=== PATIENT | male | born 1955 ===

== ENCOUNTER 2024-02-11 14:13 | Inpatient (IN) ==
[2024-02-11] MEDS ORDERED: IOPAMIDOL 100 ML BOTTLE IV ONE (14:14)
[2024-02-11 16:02] LABS: Basophils # (Auto) 0.03 K/mcL (0.00-0.30); Basophils % (Auto) 0.2 % (0.0-2.0); Eosinophils # (Auto) 0.05 K/mcL (0.00-0.70); Eosinophils % (Auto) 0.3 % (0.0-7.0); Hematocrit 48.6 % (40.1-51.0); Lymphocytes # (Auto) 0.78 K/mcL (1.50-4.80); Mean Cell Volume 92.6 fL (80.0-100.0); Mean Corpuscular HGB Conc 32.9 g/dL (31.0-36.0); Mean Platelet Volume 9.9 fL (8.8-12.5); Monocytes # (Auto) 0.96 K/mcL (0.10-0.90); Monocytes % (Auto) 4.9 % (1.0-12.0); Neutrophils % (Auto) 90.2 % (38.0-78.0); Platelet Count 363 K/mcL (140-440); RBC 5.25 M/mcL (4.63-6.08); WBC 19.4 K/mcL (4.5-11.0)
[2024-02-11 16:21] LABS: ALT/SGPT 96 U/L (<40); AST/SGOT 201 U/L (<40); Albumin 3.7 gm/dL (3.2-5.2); Albumin/Globulin Ratio 0.9 (1.0-2.3); Alkaline Phosphatase 197 U/L (39-117); Bilirubin,Total 0.8 mg/dL (0.1-1.0); Blood Urea Nitrogen 17 mg/dL (8-23); Calcium 9.2 mg/dL (8.6-10.4); Carbon Dioxide 23 mmol/L (22-30); Chloride 97 mmol/L (96-108); Glomerular Filtration Rate 109; Glucose 275 mg/dL (70-105); Potassium 4.1 mmol/L (3.3-5.1); Sodium 133 mmol/L (133-145)
[2024-02-11] MEDS: PIPERACILLIN SODIUM/TAZOBACTAM 3.375 GM in DEXTROSE 5% IN WATER 50 ML IV ONE (16:38)
[2024-02-11] MEDS: 0.9 % SODIUM CHLORIDE 1,000 ML IV SCH ×2 (18:05→20:40)
[2024-02-11 19:39] LABS: Appearance,Urine Cloudy (Clear); Bacteria,Urine Many /hpf (0); Bilirubin,Urine Negative (Negative); Color,Urine Yellow; Glucose,Urine (UA) 100 mg/dL (Negative); Ketones,Urine Trace mg/dL (Negative); Leukocyte Esterase,Urine Trace /uL (Negative); Nitrate,Urine Negative (Negative); PH,Urine 5.5 (5.0-9.0); Protein,Urine >=300 mg/dL (Negative); Urine Blood Trace-intact ery/mcL (Negative); Urine RBC 0 /hpf (0-3); Urine Squamous Epithelial Cell 0 /hpf (0-4); Urine WBC 50 /hpf (0-4); Urobilinogen,Urine Normal
[2024-02-11] MEDS ORDERED: oxyCODONE IR 5 MG TABLET PO PRN (20:25)
[2024-02-11] MEDS ORDERED: DEXTROSE 31 GM ORAL.SUSP PO PRN (20:25)
[2024-02-11] MEDS ORDERED: ONDANSETRON 4 MG/2 ML VIAL IV PRN (20:25)
[2024-02-11] MEDS ORDERED: DEXTROSE 50% 50 ML VIAL IV PRN (20:25)
[2024-02-11] MEDS ORDERED: ALBUTEROL SULFATE 2.5 MG/3 ML NEBULIZER NEB PRN (20:25)
[2024-02-11] MEDS ORDERED: CALCIUM CARBONATE 500 MG TAB.CHEW CHEWED PRN (20:25)
[2024-02-11] MEDS ORDERED: ZOLPIDEM 5 MG TABLET PO PRN (20:25)
[2024-02-11] MEDS ORDERED: MAG HYDROX/AL HYDROX/SIMETH 30 ML ORAL.SUSP PO PRN (20:25)
[2024-02-11] MEDS ORDERED: ACETAMINOPHEN 325 MG TABLET PO PRN (20:25)
[2024-02-11] MEDS ORDERED: METOCLOPRAMIDE 10 MG/2 ML VIAL IV PRN (20:25)
[2024-02-11] MEDS ORDERED: MAGNESIUM HYDROXIDE 30 ML ORAL.SUSP PO PRN (20:25)
[2024-02-11] MEDS ORDERED: HYDROmorphone 0.5 MG/0.5 ML SYRINGE IV PRN (20:25)
[2024-02-11] MEDS: VANCOMYCIN 125 MG CAPSULE PO SCH (21:03)
[2024-02-11] MEDS: 0.9 % SODIUM CHLORIDE 10 ML SYRINGE IV SCH (21:04)
[2024-02-11] MEDS: DOCUSATE SODIUM 100 MG CAPSULE PO SCH (21:04)
[2024-02-11] MEDS: METOPROLOL TARTRATE 25 MG TABLET PO SCH (21:04)
[2024-02-11] MEDS: PIPERACILLIN SODIUM/TAZOBACTAM 3.375 GM in DEXTROSE 5% IN WATER 100 ML IV SCH (22:16)
[2024-02-12] MEDS: INSULIN LISPRO 1 UNIT/0.01 ML UNIT SQ SCH (01:12)
[2024-02-12 06:05] LABS: Basophils # (Auto) 0.02 K/mcL (0.00-0.30); Basophils % (Auto) 0.1 % (0.0-2.0); Eosinophils # (Auto) 0.05 K/mcL (0.00-0.70); Eosinophils % (Auto) 0.3 % (0.0-7.0); Hematocrit 45.6 % (40.1-51.0); Lymphocytes # (Auto) 1.09 K/mcL (1.50-4.80); Lymphocytes % (Auto) 6.1 % (15.5-49.0); Mean Cell Volume 92.1 fL (80.0-100.0); Mean Corpuscular HGB Conc 32.9 g/dL (31.0-36.0); Mean Platelet Volume 10.4 fL (8.8-12.5); Monocytes # (Auto) 1.49 K/mcL (0.10-0.90); Monocytes % (Auto) 8.4 % (1.0-12.0); Neutrophils % (Auto) 84.8 % (38.0-78.0); Platelet Count 355 K/mcL (140-440); RBC 4.95 M/mcL (4.63-6.08); Red Cell Distribution Width 13.1 % (11.5-14.5); WBC 17.8 K/mcL (4.5-11.0)
[2024-02-12 06:17] LABS: ALT/SGPT 96 U/L (<40); AST/SGOT 87 U/L (<40); Albumin 3.3 gm/dL (3.2-5.2); Albumin/Globulin Ratio 0.9 (1.0-2.3); Alkaline Phosphatase 185 U/L (39-117); Bilirubin,Total 0.6 mg/dL (0.1-1.0); Blood Urea Nitrogen 16 mg/dL (8-23); Carbon Dioxide 24 mmol/L (22-30); Chloride 98 mmol/L (96-108); Globulin 3.5 gm/dL (2.2-3.7); Glomerular Filtration Rate 101; Glucose 196 mg/dL (70-105); Potassium 3.7 mmol/L (3.3-5.1); Sodium 134 mmol/L (133-145)
[2024-02-12] MEDS ORDERED: DIGOXIN 125 MCG TABLET PO SCH (14:00)
[2024-02-12] MEDS: METOCLOPRAMIDE 10 MG TABLET PO SCH (15:06)
[2024-02-12] MEDS: PANTOPRAZOLE 40 MG TABLET PO SCH (16:49)
[2024-02-12] MEDS: MOMETASONE FORMOTEROL INH SCH (21:29)
[2024-02-13 06:05] LABS: Basophils # (Auto) 0.04 K/mcL (0.00-0.30); Basophils % (Auto) 0.4 % (0.0-2.0); Eosinophils # (Auto) 0.34 K/mcL (0.00-0.70); Eosinophils % (Auto) 3.3 % (0.0-7.0); Hematocrit 41.7 % (40.1-51.0); Hemoglobin 13.6 g/dL (13.7-17.5); Lymphocytes # (Auto) 1.41 K/mcL (1.50-4.80); Lymphocytes % (Auto) 13.6 % (15.5-49.0); Mean Cell Volume 93.7 fL (80.0-100.0); Mean Corpuscular HGB Conc 32.6 g/dL (31.0-36.0); Mean Platelet Volume 10.4 fL (8.8-12.5); Monocytes % (Auto) 11.5 % (1.0-12.0); Platelet Count 322 K/mcL (140-440); RBC 4.45 M/mcL (4.63-6.08); Red Cell Distribution Width 13.2 % (11.5-14.5); WBC 10.4 K/mcL (4.5-11.0)
[2024-02-13 06:44] LABS: ALT/SGPT 61 U/L (<40); AST/SGOT 48 U/L (<40); Alkaline Phosphatase 131 U/L (39-117); Bilirubin,Total 0.7 mg/dL (0.1-1.0); Blood Urea Nitrogen 13 mg/dL (8-23); Calcium 8.1 mg/dL (8.6-10.4); Carbon Dioxide 24 mmol/L (22-30); Chloride 104 mmol/L (96-108); Glomerular Filtration Rate 101; Glucose 103 mg/dL (70-105); Potassium 3.2 mmol/L (3.3-5.1); Sodium 139 mmol/L (133-145)
[2024-02-13] MEDS: DULoxetine 30 MG CAPSULE PO SCH (08:15)
[2024-02-13] MEDS: DOCUSATE SODIUM 100 MG CAPSULE PO SCH (08:15)
[2024-02-13] MEDS ORDERED: NON FORMULARY MEDICATION 1 DOSE MISCELL (Duloxetine 60 mg capsule,delayed release(DR/EC)) PO SCH (09:00)
[2024-02-13] MEDS: PNEUMOCOCCAL 23-VAL P-SAC VAC 0.5 ML SYRINGE IM ONE (09:19)
[2024-02-13] MEDS: FLU VACC TS2024-25(65YR UP)/PF 180 MCG/0.5 ML SYRINGE IM ONE (09:20)
[2024-02-13] MEDS ORDERED: DEXTROSE 31 GM ORAL.SUSP PO PRN (17:42)
[2024-02-13] MEDS ORDERED: DEXTROSE 50% 50 ML VIAL IV PRN (17:42)
[2024-02-13] MEDS: INSULIN LISPRO 1 UNIT/0.01 ML UNIT SQ SCH (18:17)
[2024-02-13] MEDS: INSULIN LISPRO 1 UNIT/0.01 ML UNIT SQ ONE (20:28)
[2024-02-14 06:09] LABS: Basophils # (Auto) 0.04 K/mcL (0.00-0.30); Basophils % (Auto) 0.4 % (0.0-2.0); Eosinophils # (Auto) 0.38 K/mcL (0.00-0.70); Eosinophils % (Auto) 3.8 % (0.0-7.0); Hemoglobin 13.3 g/dL (13.7-17.5); Lymphocytes # (Auto) 1.22 K/mcL (1.50-4.80); Lymphocytes % (Auto) 12.3 % (15.5-49.0); Mean Cell Volume 93.2 fL (80.0-100.0); Mean Corpuscular HGB Conc 32.4 g/dL (31.0-36.0); Monocytes # (Auto) 0.91 K/mcL (0.10-0.90); Monocytes % (Auto) 9.2 % (1.0-12.0); Neutrophils % (Auto) 73.9 % (38.0-78.0); Platelet Count 315 K/mcL (140-440); Red Cell Distribution Width 13.1 % (11.5-14.5); WBC 9.9 K/mcL (4.5-11.0)
[2024-02-14 06:35] LABS: ALT/SGPT 41 U/L (<40); AST/SGOT 25 U/L (<40); Albumin/Globulin Ratio 1.1 (1.0-2.3); Alkaline Phosphatase 112 U/L (39-117); Bilirubin,Total 0.8 mg/dL (0.1-1.0); Blood Urea Nitrogen 9 mg/dL (8-23); Calcium 8.4 mg/dL (8.6-10.4); Carbon Dioxide 22 mmol/L (22-30); Chloride 101 mmol/L (96-108); Globulin 2.8 gm/dL (2.2-3.7); Glomerular Filtration Rate 101; Glucose 216 mg/dL (70-105); Potassium 3.3 mmol/L (3.3-5.1); Sodium 134 mmol/L (133-145)
[2024-02-14] MEDS ORDERED: DEXTROSE 31 GM ORAL.SUSP PO PRN (10:44)
[2024-02-14] MEDS ORDERED: DEXTROSE 50% 50 ML VIAL IV PRN (10:44)
[2024-02-14] MEDS: INSULIN LISPRO 1 UNIT/0.01 ML UNIT SQ SCH (11:12)
[2024-02-14] MEDS: POTASSIUM CHLORIDE 20 MEQ TABLET PO SCH (17:20)
[2024-02-15 06:11] LABS: Basophils # (Auto) 0.02 K/mcL (0.00-0.30); Basophils % (Auto) 0.2 % (0.0-2.0); Eosinophils # (Auto) 0.31 K/mcL (0.00-0.70); Eosinophils % (Auto) 3.2 % (0.0-7.0); Hematocrit 43.8 % (40.1-51.0); Hemoglobin 14.3 g/dL (13.7-17.5); Lymphocytes # (Auto) 1.42 K/mcL (1.50-4.80); Lymphocytes % (Auto) 14.6 % (15.5-49.0); Mean Cell Volume 93.2 fL (80.0-100.0); Mean Corpuscular HGB Conc 32.6 g/dL (31.0-36.0); Mean Platelet Volume 10.4 fL (8.8-12.5); Monocytes # (Auto) 0.96 K/mcL (0.10-0.90); Monocytes % (Auto) 9.9 % (1.0-12.0); Neutrophils % (Auto) 71.8 % (38.0-78.0); Platelet Count 307 K/mcL (140-440); WBC 9.7 K/mcL (4.5-11.0)
[2024-02-15 06:37] LABS: ALT/SGPT 34 U/L (<40); AST/SGOT 23 U/L (<40); Albumin 3.3 gm/dL (3.2-5.2); Alkaline Phosphatase 113 U/L (39-117); Bilirubin,Total 0.8 mg/dL (0.1-1.0); Blood Urea Nitrogen 11 mg/dL (8-23); Carbon Dioxide 27 mmol/L (22-30); Chloride 100 mmol/L (96-108); Globulin 3.2 gm/dL (2.2-3.7); Glomerular Filtration Rate 95; Glucose 288 mg/dL (70-105); Potassium 4.3 mmol/L (3.3-5.1); Sodium 137 mmol/L (133-145)
== END 2024-02-15 15:58 | DRG 392 ==
LOC: ED 14:13 → MEDSUR 20:09
PROVIDERS: ADMIT Internal Medicine; ATTEND Internal Medicine